=== PATIENT | female | born 1965 | race Caucasian/White ===

== ENCOUNTER → 2019-03-27 14:44 | Outpatient (CLI) | payer OTHER, SELFPAY ==
--- NOTE | ~2019-03-27 | XR_ITS ---
EXAMINATION: XR knee LT min 4V DATE: 03/27/2019 14:56 INDICATION: Left knee pain. TECHNIQUE: 4 views of left knee were obtained. COMPARISON: None. FINDINGS: Bone alignment is normal. No fracture. There is mild tricompartmental osteoarthritis. No kn ee joint effusion. IMPRESSION: 1. Mild left knee osteoarthritis. Reviewed, dictated and finalized at location A. NE REPAIRER
== END ==
PROVIDERS: PCP Family Medicine; Visit Provider Physician Assistant
DX: M17.12 Unilateral primary osteoarthritis, left knee (principal)
CPT/HCPCS: 73564

== ENCOUNTER 2019-11-15 14:15 | Outpatient (RCR) | payer OTHER, SELFPAY ==
--- NOTE | 2019-09-29 15:55 | PTOPEVAL ---
Thank you for referring Kassi Munoz to [facility].? The patient is scheduled to be seen for therapy? 2 x/week for 3 weeks. Please review, sign, date and return this plan of care ERIKA. I agree with and certify that the following plan of care is medically necessary. Referring Physician Date Admitting Provider: Attending Provider: Louis Mayen MD Referring Provider: *PT Outpatient Evaluation Start: 09/29/19 14:36 Freq: Status: Active Protocol: Document 09/29/19 14:36 TLM (Rec: 09/29/19 15:21 [facility] [id number]) Therapy Assessment Status Assessment Status Assessment Status Evaluation Outpatient Past Medical History Past Medical History No Past Medical/Surgical History Patient/Family Denies Significant Past Medical/ Surgical History Evaluation Information Problem Diagnosis R ACL sprain Onset June 2019 Subjective Information In May, pt was doing Query Text:As Reported By 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 Got cortisone shot end of May which made it feel a little better however still cautious with movement. 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 Had initial pain, however, was able to cut all her grass. Noticed swelling and decreased range that night. Went to MD later that week where he told her to ice and continue taking her naproxen. 2 weeks ago (~ 09/16/2019) pt had an appointment at her primary who sent her to Dr. Mayen. Dr. Mayen drained fluid from lateral R knee and gave a second cortisone shot. States her knee is feeling better, however, still karel randomly. Is currently wearing R knee brace when walking increased distances or having increased activity. Diagnostic Tests X-Rays For This Problem Yes: Past R knee injury Pain Assessment Timing of Pain Assessment Timing of Pain Assessment
--- NOTE | 2019-10-18 15:42 | PTOPEVAL ---
Thank you for referring Kassi Munoz to [facility] [place][Note 2[place]? The patient is scheduled to be seen for therapy? 2 x/week for 4 weeks. Please review, sign, date and return this plan of care EIRKA. I agree with and certify that the following plan of care is medically necessary. Referring Physician Date Admitting Provider: Attending Provider: Louis Mayen MD Referring Provider: *PT Outpatient Evaluation Start: 09/29/19 14:36 Freq: Status: Active Protocol: Document 10/18/19 14:04 [facility] (Rec: 10/18/19 14:47 [facility] [id number]) Therapy Assessment Status Assessment Status Assessment Status Progress Outpatient Past Medical History Past Medical History No Past Medical/Surgical History Patient/Family Denies Significant Past Medical/ Surgical History Evaluation Information Problem Diagnosis R ACL sprain Onset June 2019 Subjective Information In May, pt was doing Query Text:As Reported By 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 Got cortisone shot end of May which made it feel a little better however still cautious with movement. 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 Had initial pain, however, was able to cut all her grass. Noticed swelling and decreased range that night. Went to MD later that week where he told her to ice and continue taking her naproxen. 2 weeks ago (~ 09/16/2019) pt had an appointment at her primary who sent her to Dr. Mayen. Dr. Mayen drained fluid from lateral R knee and gave a second cortisone shot. States her knee is feeling better, however, still karel randomly. Pt reports getting in and out of the bathtub/car is easier. Reports shes able to kneel down without pain and her R LE feels stronger overall. Has only had once instance of R
--- NOTE | 2019-11-06 11:03 | PCPTNOTE ---
Patient called & cancelled scheduled appointment this date due to having a .
--- NOTE | 2019-11-13 13:48 | PCPTNOTE ---
Patient called & cancelled scheduled appointment this date due to increased pain this date.
--- NOTE | 2019-11-15 15:00 | PTOPEVAL ---
Thank you for referring Kassi Munoz to [facility].? The patient is discharged from physical therapy secondary to meeting all goals and meeting max therapy potential. I agree with and certify that the following plan of care is medically necessary. Referring Physician Date Admitting Provider: Attending Provider: Louis Mayen MD Referring Provider: *PT Outpatient Discharge Start: 09/29/19 14:36 Freq: Status: Active Protocol: Document 11/15/19 14:19 TL (Rec: 11/15/19 14:41 [facility] [id number]) Therapy Assessment Status Assessment Status Assessment Status Discharge Outpatient Past Medical History Past Medical History No Past Medical/Surgical History Patient/Family Denies Significant Past Medical/ Surgical History Evaluation Information Problem Diagnosis R ACL sprain Onset June 2019 Additional Evaluation Detail Re-eval: Pt states that her knee is feeling much better. 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 States occasional snapping feeling at posterior R knee that coinsides with mild swelling. 1/10 pain with movement. States that she is 99% better and is confident in the stability and strength of her knee ans would like for today to be her last day of PT. 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 Got cortisone shot end of May which made it feel a little better however still cautious with movement. 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 Had initial pain, however, was able to cut all her grass. Noticed swelling and decreased range that night. Went to MD later that week where he told her to ice and
== END 2019-11-16 13:17 | disposition home or self-care (01) ==
LOC: ANHPT 14:15
PROVIDERS: PCP Family Medicine; Visit Provider Orthopaedic Surgery
DX: S83.511D Sprain of anterior cruciate ligament of right knee, subsequent encounter (principal)
CPT/HCPCS: 97110; 97140; 97161

== ENCOUNTER 2020-07-31 09:03 | Outpatient (CLI) | payer OTHER, SELFPAY ==
--- NOTE | ~2020-07-31 | MM_ITS ---
EXAMINATION: MM screening [facility] BI [facility] HISTORY: Screening mammogram TECHNIQUE: Craniocaudal and mediolateral oblique 3-D tomosynthesis images were obtained and synthetic 2-D images were generated. CAD analysis was submitted and interpreted. COMPARISON: 12/29/2018, 12/13/2018, 09/16/2017 BREAST PARENCHYMAL COMPOSITION: There are scattered areas of fibroglandular density. FINDINGS: There is no evidence of suspicious mass, calcification, or architectural distortion to sugg est malignancy in either breast. There has been no suspicious interval change. IMPRESSION: 1. No mammographic evidence of malignancy. 2. Recommend routine screening mammography in one year. BI-RADS Category 1: Negative Reviewed, dictated and finalized at location A.
== END 2020-07-31 09:04 | disposition home or self-care (01) ==
LOC: ANHIMG 09:05
PROVIDERS: PCP Family Medicine; Visit Provider Family Medicine
DX: Z12.31 Encounter for screening mammogram for malignant neoplasm of breast (principal)
CPT/HCPCS: 77063; 77067

== ENCOUNTER → 2021-02-25 16:34 | Outpatient (CLI) | payer OTHER, SELFPAY ==
--- NOTE | ~2021-02-25 | XR_ITS ---
EXAMINATION: XR pelvis 1-2V INDICATION: Low back and hip pain TECHNIQUE: AP view of the pelvis is obtained. COMPARISON: None available FINDINGS: Bone alignment is normal. There is no fracture. There is mild osteoarthritis of the hips. T here is severe lower lumbar spondylosis. IMPRESSION: 1. No acute osseous abnormality. Reviewed, dictated and finalized at location F. 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
--- NOTE | ~2021-02-25 | XR_ITS ---
EXAMINATION: XR lumbar spine min 4V DATE: 02/25/2021 16:57 INDICATION: Low back pain TECHNIQUE: Anteroposterior, lateral, and bilateral oblique views of the lumbar spine, and cone-down l ateral view of the lumbosacral junction were obtained. COMPARISON: None. FINDINGS: There is no fracture, dislocation, or subluxation. The vertebral body heights are normal. T here is severe loss of intervertebral disc space height at L4-5 and L5-S1. There is mild loss of inte rvertebral disc space height throughout the remainder of the lumbar spine. Moderate facet osteoarthri tis is noted at L4-5 and L5-S1. Small degenerative osteophytes project from the anterior endplates of multiple vertebral bodies. IMPRESSION: 1. Moderate to severe lumbar spondylosis without acute findings. Reviewed, dictated and finalized at location F. US AIDE
== END ==
PROVIDERS: PCP Chiropractor; Visit Provider Chiropractor
DX: M25.559 Pain in unspecified hip (principal); M47.896 Other spondylosis, lumbar region
CPT/HCPCS: 72110; 72170

== ENCOUNTER 2021-05-21 15:15 | Outpatient (RCR) | payer OTHER, SELFPAY ==
--- NOTE | 2021-04-24 16:08 | PTOPEVAL ---
PHYSICAL THERAPY INITIAL EVALUATION. Thank you for referring Kassi Munoz to [facility].? The patient is scheduled to be seen for therapy? 2x/week for 4 weeks. Please review, sign, date and return this plan of care ERIKA. I agree with and certify that the following plan of care is medically necessary. Referring Physician Date Attending Provider: Jennifer Winter PA-C *PT Outpatient Evaluation Start: 04/24/21 Evaluation Information Diagnosis Strain of lower back Onset 3 months Subjective Information Pt states her back pain Query Text:As Reported By Patient/ started with a sore muscle on Family the R side. She went to a chiropractor and this did not help, the chiropractor gave her some stretches to try and some help for a little bit. Now her entire back hurts, and is occasionally getting some pain into her pelvis. 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 She reports increasing pain momentarily when she lays down flat. Pain Assessment Lower Back Reported Pain Level 2 Pain Description Aching,Sharp,Tightness,With Movement Radicular Pain Location B hips Pain Frequency Acute,Intermittent Lowest Pain Intensity 1 Greatest Pain Intensity 8 Pain Aggravating Factors Bending,Exercise/Activity, Lifting Cervical and Lumbar ROM Lumbar Flexion (0-90) 70 Lumbar Flexion Active Ankle Lumbar Extension (0-40) 10 Lateral Flexion 4in above knee joint line Query Text:Active Hands to: bilaterally Lateral Rotation Right (0-45) 30 Lateral Rotation Left (0-45) 30 Lumbar ROM 75% of Normal Normal Lumbar Segmental Motion Yes Lower Extremity Range of Motion General Lower Extremity Range of Motion WFL/Left,WFL/Right Lower Extremity Muscle Strength Testing General Lower Extremity Strength WFL/Left,WFL/Right Gross Lower Extremity Strength Grossly 4+/5 in B LE Posture Standing Position Head/C-Spine Posture Excess Extension,Forward Head Thoracic Spine Posture Increased Kyphosis Lumbar Spine Posture Increased Lordosis Pelvis Posture Anteriorly Tilted Balance Assessment 5 Time Sit to Stand Time in Seconds 17
--- NOTE | 2021-05-12 12:48 | PCPTNOTE ---
Patient called & cancelled scheduled appointment this date due to being sick.
--- NOTE | 2021-05-14 14:41 | PCPTNOTE ---
Patient called & cancelled scheduled appointment this date due to still not feeling well.
--- NOTE | 2021-05-21 15:41 | PTOPEVAL ---
PHYSICAL THERAPY PROGRESS NOTE AND DISCHARGE REPORT. Thank you for referring Kassi Munoz to [facility].? The patient is to be discharged from skilled physical therapy services at this time. Please review, sign, date and return this plan of care ERIKA. I agree with and certify that the following plan of care is medically necessary. 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 She states she no longer is woken in the night by back pain Pain Assessment Lower Back Reported Pain Level 0 Greatest Pain Intensity 3 Cervical and Lumbar ROM Lumbar ROM Lumbar Flexion (0-90) 70 Lumbar Flexion Active Ankle Lumbar Extension (0-40) 30 Lateral Flexion 2in above knee joint line Query Text:Active Hands to: bilaterally Lateral Rotation Right (0-45) 45 Lateral Rotation Left (0-45) 45 Lumbar ROM 75% of Normal Normal Lumbar Segmental Motion Yes Lower Extremity Range of Motion General Lower Extremity Range of Motion WFL/Left,WFL/Right Gross Lower Extremity Range of Motion B LE grossly 5/5 excluding B Comments glute med 4/5 Balance Assessment 5 Time Sit to Stand Time in Seconds 11 5 Time Sit to Stand Comments INitally 17s: Without the use Query Text:Normative Data: If Greater of UEs Than 15 Seconds, 74% Increase Risk for 4/6/22: 11s without the use of Recurrent Falls UEs PT Clinical Summary Kassi presents to therapy today for her progress report following 6 therapy visits to treat her diagnosis of a lumbar muscle strain. Today she demonstrates improved awareness and body mechanics with functional mobility including squat mechanics and lifting mechanics. She reports improved pain. Kassi will be discharged from skilled physical therapy services at this time with instructions to continue with her home exercise program and to follow up with her referring
== END 2021-05-22 08:11 | disposition home or self-care (01) ==
LOC: ANHPT 15:15
PROVIDERS: PCP Family Medicine; Visit Provider Physician Assistant
DX: S39.012D Strain of muscle, fascia and tendon of lower back, subsequent encounter (principal)
CPT/HCPCS: 97110; 97112; 97140; 97161; 97530

== ENCOUNTER 2021-09-22 08:30 | Outpatient (CLI) | payer OTHER, SELFPAY ==
--- NOTE | ~2021-09-22 | MM_ITS ---
EXAMINATION: MM screening [facility] BI [facility] HISTORY: Screening mammogram TECHNIQUE: Craniocaudal and mediolateral oblique 3-D tomosynthesis images were obtained and synthetic 2-D images were generated. CAD analysis was submitted and interpreted. COMPARISON: 07/31/2020, 12/29/2018, 12/13/2018 BREAST PARENCHYMAL COMPOSITION: There are scattered areas of fibroglandular density. FINDINGS: There is no suspicious mass, calcification, or architectural distortion to suggest malignan cy in either breast. There has been no suspicious interval change. IMPRESSION: 1. No mammographic evidence of malignancy. 2. Recommend routine screening mammography in one year. BI-RADS Category 1: Negative Reviewed, dictated and finalized at location A.
== END 2021-09-22 08:31 | disposition home or self-care (01) ==
LOC: ANHIMG 08:32
PROVIDERS: PCP Family Medicine; Visit Provider Family Medicine
DX: Z12.31 Encounter for screening mammogram for malignant neoplasm of breast (principal)
CPT/HCPCS: 77063; 77067

== ENCOUNTER 2022-11-18 15:45 | Outpatient (RCR) | payer OTHER, SELFPAY ==
--- NOTE | 2022-10-26 16:36 | OPREHPOC ---
Outpatient Therapy Plan of Care This is a Multidisciplinary Plan of Care that may contain components documented by all disciplines (PT, OT, and ST.) PT Problem 1 PT Problem #1 Knowledge Deficit PT Goal 1 Goal Pt to be IND with issued HEP Target Visit 4 PT Problem 2 PT Problem #2 Pain PT Goal 1 Goal Pt to report back pain no greater than 3/10 in the last week Target Visit 4 PT Goal 2 Goal Pt to report 75% improvement in overall symptoms Target Visit 4 PT Problem 3 PT Problem #3 Impaired Range of Motion PT Goal 1 Goal Pt to report no increase in pain with active trunk ROM Target Visit 4 PT Problem 4 PT Problem #4 Impaired Functional Mobil PT Goal 1 Goal Pt to demonstrate a 30lb lift and carry without an increase in pain. Target Visit 4
--- NOTE | 2022-10-26 16:36 | PTOPEVAL1 ---
Assessment and note entered by Analia Wood, PT, DPT Evaluation Information Assessment Status Evaluation Diagnosis back pain Onset 3 months Subjective Information Pt states she had the same back pain 2 years and therapy was able to help, she tried her previous exercises without any relief. She states the pain has gradually increased for the last 3 months. She states the pain is more on the R side from her ribs to her hips, she feels it is a muscular pain. She reports most pain when rolling over in bed, and getting in/out of bed. Pt does a lot of standing and lifting for work. Reported Pain Level Pain Score 2: Self Report Assessment PT Clinical Summary Kassi presents to therapy today for her initial evaluation with a diagnosis of back pain. Today she demonstrates lumbar and hip ROM that is WNL but increases the ache felt in her R lumbar paraspinals. Her paraspinals are not tender to palpation and to not feel more tight on the R. She demonstrates a decreased ability to roll over on the mat d/t pain, her posture is also slightly flexed in sitting. Skilled therapy services are indicated to improve core strength and body mechanics, to manage pain, and to return to PLOF. Plan of Care Interventions Electrical Stimulation,Gait Training,Hot Pack/Cold Pack,Manual Therapy,Neuro Re-education,Patient/ Caregiver Educati,Therapeutic Activities, Therapeutic Exercise PT Services Indicated Yes Treatment Frequency and 1x/wk for 4 visits Duration These treatments will address the objective and functional deficits as defined above. The patient will be advanced safely and appropriately in order for the patient to progress towards his/her prior level of function. Additional exercises will be introduced and as well as a comprehensive home exercise program upon discharge, if needed, ?to ensure carryover of functional gains achieved in the clinic. This treatment plan has been reviewed and agreement upon by the patient.
--- NOTE | 2022-11-11 16:00 | PCPTNOTE ---
Patient no showed to appointment this date. Called and left voicemail.
--- NOTE | 2022-11-18 16:31 | PTOPDC ---
Assessment and note entered by Analia Wood, PT, DPT Evaluation Information Assessment Status Discharge Diagnosis back pain Onset 3 months Subjective Information Pt states overall she is doing great. She states she does get a little soreness if she feels like she overworks herself but the stretches seem to help with this. Pt reports 90% improvement in overall symptoms. She states she has improved her awareness of her body positioning. Reported Pain Level Pain Score 0: Self Report Assessment PT Clinical Summary Kassi presents to therapy today for her progress report following 3 visits of skilled therapy to treat her diagnosis of low back pain. Today she demonstrates improved lumbar and hip ROM this is now pain free. She continues to demonstrates good LE strength. Today she demonstrates a functional lift without compensations. She has met all of her therapy goals and no longer requires skilled services. She will be discharged at this time. Plan of Care PT Services Indicated No
== END 2022-11-19 09:13 | disposition home or self-care (01) ==
LOC: ANHGOSHPT 15:45
PROVIDERS: PCP Family Medicine; Visit Provider Nurse Practitioner
DX: M54.9 Dorsalgia, unspecified (principal)
CPT/HCPCS: 97110; 97112; 97161; 97530; 99199

== ENCOUNTER 2023-03-24 15:28 | Outpatient (CLI) | payer OTHER, SELFPAY ==
--- NOTE | ~2023-03-24 | MM_ITS ---
EXAMINATION: MM screening [facility] BI w [facility] HISTORY: Screening mammogram TECHNIQUE: Craniocaudal and mediolateral oblique 3-D tomosynthesis images were obtained and synthetic 2-D images were generated. CAD analysis was submitted and interpreted. COMPARISON: 09/22/2021, 07/31/2020, 12/29/2018 BREAST PARENCHYMAL COMPOSITION:Not Dense. There are scattered areas of fibroglandular density. FINDINGS: No suspicious mass, calcification, or architectural distortion are identified in either shane ast to suggest malignancy. There has been no suspicious interval change. IMPRESSION: No mammographic evidence of malignancy. Recommend routine screening mammography in one year. BI-RADS Category 1: Negative Reviewed, dictated and finalized at location . Y WORKER
== END 2023-03-24 15:29 | disposition home or self-care (01) ==
PROVIDERS: PCP Family Medicine; Visit Provider Family Medicine
DX: Z12.31 Encounter for screening mammogram for malignant neoplasm of breast (principal)
CPT/HCPCS: 77063; 77067

== ENCOUNTER 2023-06-15 14:56 | Outpatient (CLI) | payer OTHER, SELFPAY ==
--- NOTE | ~2023-06-15 | XR_ITS ---
XR hip LT min 2V DATE: 06/15/2023 15:07 INDICATION: Left hip pain TECHNIQUE: AP and lateral views of the left hip COMPARISON: None FINDINGS: The pubic symphysis and left sacroiliac joint appear normal. Normal left hip joint space. N o fracture, dislocation, avascular necrosis or bone destruction of the left hip is detected. IMPRESSION: Negative Reviewed, dictated and finalized at location A. IMPRESSION: Negative
== END 2023-06-15 14:57 ==
PROVIDERS: PCP Family Medicine; Visit Provider Family Medicine
DX: M25.552 Pain in left hip (principal)
CPT/HCPCS: 73502

== ENCOUNTER 2023-07-02 09:10 | Emergency (ER) | payer OTHER, SELFPAY ==
--- NOTE | ~2023-07-02 | XR_ITS ---
EXAMINATION: XR knee RT min 4V DATE: 07/02/2023 09:46 INDICATION: Fall onto right knee with pain and swelling TECHNIQUE: Anteroposterior, oblique, sunrise and lateral views of the right knee were obtained COMPARISON: None. FINDINGS: Alignment is normal. No fracture. Small marginal osteophytes in all 3 compartments with relatively p reserved joint spaces consistent with mild tricompartmental osteoarthritis. No joint effusion. Soft t issues are unremarkable. IMPRESSION: 1. Mild tricompartmental osteoarthritis at the right knee with no joint effusion or acute osseous abn ormality. Reviewed, dictated and finalized at location A. IMPRESSION: 1. Mild tricompartmental osteoarthritis at the right knee with no joint effusio n or acute osseous abnormality.
[2023-07-02 09:22] VITALS: BP 126/86; PULSE 84; RESP 16; TEMP 37.1; O2SAT 99
--- NOTE | 2023-07-02 09:23 | ED.LOWEXIN ---
HPI - Extremity Injury (Lower) General Chief Complaint: Extremity Injury, Lower Stated Complaint: Injured Right Knee Time Seen by Provider: 07/02/23 09:24 Source: patient, RN notes reviewed and old records reviewed Mode of arrival: ambulatory Limitations: no limitations History of Present Illness HPI Narrative: 57 year old female who presents to express care with complaints of falling off of the curb onto her right knee yesterday. Patient reports that she has taken Ibuprofen but has not used any ice. Patient feels that her knee is swollen and stiff. Patient has been able to bear weight but is limping states that her knee feels tight with generalized discomfort of her anterior knee. Patient is able to bend her knee, negative varus and valgus tests, negative drawer test. MD complaint: knee injury Onset (ago): day(s) (since yesterday) Injury: Right: knee (stepped off of curb fell onto knee) Type of Injury: blunt and other (twisted) Place: street/outdoors Severity scale (1-10): 7 Treatments prior to arrival: NSAIDS Related Data Home Medications Medication Instructions Recorded Confirmed naproxen 500 mg tablet See Rx Instructions .Route 03/09/23 07/02/23 .COMPLEX PRN Pain, Mild valacyclovir 500 mg tablet 500 mg PO DAILY 03/09/23 07/02/23 Allergies Allergy/AdvReac Type Severity Reaction Status Date / Time amoxicillin Allergy Unknown Skin Verified 07/02/23 09:20 Reaction atorvastatin Allergy Unknown muscle Verified 07/02/23 09:20 soreness doxycycline Allergy Unknown Skin Verified 07/02/23 09:20 Reaction erythromycin base Allergy Unknown Nausea Verified 07/02/23 09:20 minocycline Allergy Unknown Skin Verified 07/02/23 09:20 Reaction Sulfa (Sulfonamide Allergy Unknown Nausea Verified 07/02/23 09:20 Antibiotics) Review of Systems Review of Systems: CONSTITUTIONAL: Denies fever, chills, or sweats. EYES: Denies visual changes, redness, or discharge. ENT: Denies rhinorrhea, congestion, sore throat, or otalgia. CARDIOVASCULAR: Denies chest pain, palpitations, or edema. RESPIRATORY: Denies cough or dyspnea. GASTROINTESTINAL: Denies abdominal pain, nausea, vomiting, or diarrhea. GENITOURINARY: Denies dysuria or hematuria. SKIN: Denies rash or itching. MUSCULOSKELETAL: Denies back pain, positive for right knee pain. swelling and stiffness or myalgia. NEUROLOGIC: Denies headache, numbness, or weakness. PSYCHIATRIC: Denies anxiety or depression. 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 Generalized anxiety disorder Laceration without foreign body of left thumb without damage to nail, initial encounter Menopause Prediabetes Family History Family History Mother Family history of thyroid disease, Onset Age: 86 Depression, Onset Age: 86 Family history of cardiovascular disease, Onset Age: 86 Family history of atrial fibrillation, Onset Age: 86 Father Diabetes mellitus Family history of cardiovascular disease Family history of Alzheimer's disease Family history of dementia Grandparent Family history of glaucoma Other No family history of malignant neoplasm Social History Social History Social History: Caffeine-coffee Smoking status: Never smoker Second hand tobacco smoke exposure: No Alcohol intake: current Alcohol use details: Only on occasion Substance use: never Substance use type: does not use Lack of Transportation: No Lack of Food: Never True Current Housing: I Have Housing Concerned About Future Housing: No Diffic
== END 2023-07-02 10:08 | disposition home or self-care (01) ==
PROVIDERS: Emergency Provider Registered Nurse; PCP Family Medicine
DX: M25.561 Pain in right knee (principal); E78.5 Hyperlipidemia, unspecified; R73.03 Prediabetes; F41.1 Generalized anxiety disorder
CPT/HCPCS: 73564; 99213; G0463

== ENCOUNTER 2024-06-30 10:06 | Outpatient (CLI) | payer OTHER, SELFPAY ==
--- NOTE | ~2024-06-30 | US_ITS ---
Pelvic ultrasound. Clinical History: Postmenopausal bleeding Technique: Realtime transabdominal and transvaginal scanning of the pelvis was performed. Color flow Doppler and Doppler spectral analysis were performed. Findings: The uterus is anteverted, and measures 5.6 x 3.0 x 4.1 cm. The endometrial stripe has a th ickness of 3 mm. No focal mass is identified. Neither ovary seen. No adnexal mass seen. There is no evidence of free fluid in the cul de sac. Impression: No significant abnormality seen. Neither ovary visualized. Reviewed, dictated and finalized at location . Impression: No significant abnormality seen. Neither ovary visualized.
== END 2024-06-30 10:07 | disposition home or self-care (01) ==
LOC: MICIMG 10:09
PROVIDERS: PCP Family Medicine; Visit Provider Obstetrics & Gynecology Gynecology
DX: N95.0 Postmenopausal bleeding (principal)
CPT/HCPCS: 76830

== ENCOUNTER 2024-11-24 09:24 | Outpatient (CLI) | payer OTHER, SELFPAY ==
--- NOTE | ~2024-11-24 | MM_ITS ---
EXAMINATION: MM screening nereida BI w smita HISTORY: Screening TECHNIQUE: Craniocaudal and mediolateral oblique 3-D tomosynthesis images were obtained and synthetic 2-D images were generated. CAD analysis was submitted and interpreted. COMPARISON: 03/24/2023 and 09/22/2021 BREAST PARENCHYMAL COMPOSITION: The breasts are heterogeneously dense, which may obscure small masses. FINDINGS: There is no evidence of suspicious mass, calcification, or architectural distortion to suggest malignancy. Focal asymmetry in the left breast at the 12:00 position posterior depth. Asymmetry in the upper left breast, middle depth, seen in the left MLO projection. IMPRESSION: 1. Focal asymmetry in the left breast at the 12:00 position, posterior depth. Asymmetry in the upper left breast, middle depth, seen in the left MLO projection. The study is incomplete. A diagnostic mammogram and a diagnostic ultrasound are recommended. 2. No mammographic evidence for malignancy in the right breast. BI-RADS 0: Incomplete-Need additional imaging evaluation. Reviewed, dictated and finalized at location Q. IMPRESSION: 1. Focal asymmetry in the left breast at the 12:00 position, posterior depth. A symmetry in the upper left breast, middle depth, seen in the left MLO projectio n. The study is incomplete. A diagnostic mammogram and a diagnostic ultrasound are recommended. 2. No mammographic evidence for malignancy in the right breast. BI-RADS 0: Incomplete-Need additional imaging evaluation.
--- OUTSIDE RECORDS SUMMARY | 2024-11-24 09:45 | XMS_ITS | Clinical Summary ---
Author Organization [facility] Address [address] [place] [address] Care Team Providers Care Gas Truck Driver Name Role Phone Inna Das DO Primary Care Provider [phone]- [phone] Allergies Active Allergy Reactions Criticality Noted Date Comments Erythromycin Stomach upset Low 12/12/2021 Penicillins Rash Medium 12/12/2021 Sulfa (Sulfonamide Antibiotics) Rash Medium 11/16 Medications omeprazole-clar ith-amoxicillin 20 mg-500 mg- 500 mg (40) combo pack Take by mouth Active escitalopram (LEXAPRO) 20 mg tablet Take 1 tablet (20 mg total) by mouth daily Active naproxen (NAPROSYN) 500 mg tablet 11/13/2021 Active metFORMIN XR (GLUCOPHAGE XR) 500 mg 24 hr tablet Take 1 tablet (500 mg total) by mouth 2 (two) times a day 02/02/2022 Active pravastatin (PRAVACHOL) 40 mg tablet Take 1 tablet (40 mg total) by mouth nightly at bedtime 12/17/2023 Active valACYclovir (VALTREX) 500 mg tablet Take 1 tablet (500 mg total) by mouth daily 2023 Active Active Problems Problem Noted Date Diagnosed Date Corneal scar, left eye 02/04/2024 Assessment & Plan (05/26/2024 8:20 AM CDT): With irregular astigmatism 2/2 fungal ulcer Today [place] [id number] OD: Right eye (OD): dot at 090, 150um central clearance - thinner sup, adequate mid periphery, adequate haptic 360 BCVA 20/40 w/ SRx over CTLs Great fit, adequate vision with lens. Advised to stop wearing lens and call with any redness, pain or blurred vision. RTC 6 months for CTL check, sooner if problems arise Assessment & Plan (03/24/2024 10:10 AM ASSOCIATE PROFESSOR OF EDUCATION): With irregular astigmatism 2/2 fungal ulcer Today with [place] [id number]: OD: dot at 090, 100um central clearance - thinner inf, thin mid periphery but no touch, adequate haptic Very inconsistent ORx Increase central 50um, increase mid periphery 75. Appears that FSE2 was trialed during fitting with no improvement, will put in next lens to see if any subjective improvement. Very inconsistent ORx noted, will incorporate small amount into Srx to reduce anisometropia. Next lens mailed to patient, will communicate through [employer] at very least will have patient RTC prior to warranty ending. 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 Advised to stop wearing lens and call with any redness, pain or blurred vision. RTC for CTL check in 2-3 weeks Assessment & Plan (02/04/2024 11:26 AM ASSOCIATE PROFESSOR OF EDUCATION): Status post (s/p) Fusarium corneal ulcer Pt notes adequate vision with glasses but excessive shadows left eye (OS) Today w/ [place] [id number] Right eye (OD): dot at 135, 650um central clearance, adequate midperiphery/limbal, adequate haptic, mild blanching quad 2 BCVA 20/40--, patient notes significant improvement with shadows No improvement in BCVA w/ FSE2, notes worsened shadows RTC for disp when CTL arrives Ref #[id number] Assessment & Plan (07/21/2022 8:06 AM CDT): Corneal ulcer, OS -- fusarium and rare proprionbacterium secondary scar - stable VA on topical steroids x 6mos ADLs being met observe PLAN: - Cont Valtrex 1g QD - Cont pf Dex (0.1%) gtts OS T x 2mos, then bid x 2mos, then qdID - Cont CL holiday RTC 6mos w/ Dr. Johnson Assessment & Plan (04/21/2022 4:19 PM ASSOCIATE PROFESSOR OF EDUCATION): Corneal ulcer, OS -- fusarium and rare proprionbacterium PLAN: - Cont Valtrex 1g QD - Cont pf Dex (0.1%) gtts OS QID - Cont CL holiday indefinitely - Okay to return to work without restrictions RTC 6wks Assessment & Plan (03/10/2022 8:08 AM ASSOCIATE PROFESSOR OF EDUCATION): Corneal ulcer, OS -- fusarium and rare proprionbacterium PLAN: - Cont Valtrex 1g QD - Cont pf Dex (0.1%) gtts OS QID - Cont CL holiday indefinitely - Okay to return to work without restrictions RTC 6wks Assessment & Plan (02/24/2022 7:50 AM ASSOCIATE PROFESSOR OF EDUCATION): Corneal ulcer, OS -- fusarium and rare proprionbacterium Today significantly improved conjunctival injection with change to pf Dex, most likely allergic reaction to PF PLAN: - Cont Valtrex 1g QD - Cont pf Dex (0.1%) gtts OS QID - Cont CL holiday indefinitely - Okay to return to work without restrictions RTC 1 week Assessment & Plan (02/19/2022 9:01 AM ASSOCIATE PROFESSOR OF EDUCATION): Corneal ulcer, OS -- fusarium and rare proprionbacterium Today no infiltrate with scarring, KNV superiorly improved to 1.3mm, no epi defect Increased conjunctival injection, most likely developing allergic reaction to drop PLAN: - ContValtrex to 1g QD - D/c PF TID (may be allergic to vehicle or preservative) -start pres free Dex (0.1%)gtts OS QID - Cont CL holiday indefinitely - Okay to return to work without restrictions RTC Assessment & Plan (02/17/2022 8:31 AM ASSOCIATE PROFESSOR OF EDUCATION): Corneal ulcer, OS -- fusarium and rare proprionbacterium Today no infiltrate with scarring, KNV superiorly improved to 1.3mm, no epi defect Increased conjunctival injection, most likely developing allergic reaction to drop PLAN: - Dec Valtrex to 1g QD - Stop Natamycin and voriconazole - Stop ocuflox BID OS - Cont PF TID - Cont CL holiday indefinitely - Okay to return to work without restrictions RTC Wed/Wed Assessment & Plan (02/03/2022 8:43 AM ASSOCIATE PROFESSOR OF EDUCATION): Corneal ulcer, OS -- fusarium and rare proprionbacterium 1 x 1 infiltrate (improved in size), now with central clearing with thinning 30% NST, gutter at 1-6oc with thinning, KNV superotemporally 2mm onto cornea, pinpoint epi defect PLAN: - Cont Valtrex to 1g BID - Cont Natamycin and voriconazole BID WA 1 apart x 1wk, then qd - Cont ocuflox BID OS - Start PF TID 3 days prior to next visit - Perforation precautions emphasized - continue CL holiday indefinitely RTC 2 weeks Assessment & Plan (01/29/2022 3:49 PM ASSOCIATE PROFESSOR OF EDUCATION): Corneal ulcer, OS -- fusarium and rare proprionbacterium 1.3 x 1 infiltrate (improved in size), now with central clearing without thinning, gutter at 1-6oc with thinning, KNV superotemporally 1.1mm onto cornea Improved 0.1mm inferior hypopyon dusting from inflammation PLAN: - decreasee Valtrex to 1g BID - decrease Natamycin and topical voriconazole BID WA 1 apart - decrease ocuflox BID OS - Perforation precautions emphasized - continue CL holiday indefinitely RTC 2 weeks Assessment & Plan (01/22/2022 4:05 PM ASSOCIATE PROFESSOR OF EDUCATION): Corneal ulcer, OS -- fusarium and rare proprionbacterium 2.5x2.5 infiltrate (improved in size), now with central clearing without thinning, gutter at 1-6oc with thinning, KNV superotemporally 1.5mm onto cornea New 1.1mm inferior hypopyon dusting from inflammation PLAN: - Continue valtrex to 1g TID - Decrease Natamycin and topical voriconazole TID WA - Continue ocuflox TID OS - Perforation precautions emphasized - continue CL holiday OD RTC 1 weeks Assessment & Plan (01/06/2022 1:34 PM ASSOCIATE PROFESSOR OF EDUCATION): Corneal ulcer, OS -- fusarium and rare proprionbacterium 4.5x4.5 infiltrate, now with central clearing without thinning, gutter at 1-6oc with thinning, no hypopyon PLAN: - Continue valtrex to 1g TID - Decrease Natamycin and topical voriconazole 5x/day WA - Continue ocuflox TID OS - Perforation precautions emphasized - continue CL holiday OD RTC 2 weeks Assessment & Plan (12/30/2021 8:19 AM ASSOCIATE PROFESSOR OF EDUCATION): Corneal ulcer, OS -- fusarium and rare proprionbacterium 4.5x4.5 infiltrate, now with central clearing without thinning, gutter at 1-6oc with thinning, no hypopyon PLAN: - Continue valtrex to 1g TID - Decrease Natamycin and topical voriconazole Q3hr (6x/day) WA - Continue ocuflox TID OS - Perforation precautions emphasized - continue CL holiday OD RTC 1 week Assessment & Plan (12/23/2021 8:24 AM ASSOCIATE PROFESSOR OF EDUCATION): Corneal ulcer, OS -- fusarium and rare proprionbacterium 5.3Vx5.9H infiltrate without epi defect, now with central clearing without thinning, gutter at 4oc with thinning, resolved hypopyon PLAN: - Continue valtrex to 1g TID - Continue Natamycin and topical voriconazole Q3hr (6x/day) WA - reduce ocuflox TID OS - Perforation precautions emphasized - continue CL holiday OD RTC Wednesday Assessment & Plan (12/18/2021 8:03 AM CDT): Corneal ulcer, OS -- fusarium and rare proprionbacterium Symptoms onset 12/03. Hx CL wear, sleeps in CL almost nightly, showers with CL in. Was being treated as HSV keratitis 5.3Vx5.9H infiltrate without epi defect, now with central clearing without thinning, gutter at 4oc with thinning, resolved hypopyon PLAN: - Continue valtrex to 1g TID - Continue Natamycin and topical voriconazole Q2 hr 1 minute apart WA OS. Decrease to Q3hr on Wednesday - Continue ocuflox QID OS - Perforation precautions emphasized - CL holiday RTC Wednesday Assessment & Plan (12/16/2021 7:48 AM CDT): Corneal ulcer, OS -- growing mold and rare proprionbacterium Symptoms onset 12/03. Hx CL wear, sleeps in CL almost nightly, showers with CL in. Was being treated as HSV keratitis 5.2Vx5.4H infiltrate with trace overlying epi defect, 0.5mm hypopyon PLAN: - Continue valtrex to 1g TID - Natamycin and topical voriconazole Q2 hr 1 minute apart WA OS - Start ocuflox QID OS - CL holiday RTC Assessment & Plan (12/12/2021 3:38 PM CDT): Symptoms onset 12/03. Hx CL wear, sleeps in CL almost nightly, showers with CL in. Was being treated as HSV keratitis 3.5x3.3 ulcer with multiple infiltrates and feathery borders and overlying epi defect PLAN: - Increase valtrex to 1g TID - Start moxi hourly WA OS - Stop tobradex - Stop trifluride - Bacterial, fungal, and viral cultures taken today - CL holiday RTC Wednesday Medical History Medical History Date Comments Corneal ulcer 12/03/2021 OS Herpes 12/03/2021 Social History Tobacco Use Types Packs/Day Years Used Date Smoking Tobacco: Never Tobacco Cessation:Counseling Given: Not Answered Comments No Sex and Gender Information Value Date Recorded Sex Assigned at Not on file Legal Sex Female 2:29 PM ASSOCIATE PROFESSOR OF EDUCATION Gender Identity Not on file Sexual Orientation Not on file Obstetrics History Last Filed Vital Signs Vital Sign Reading Time Taken Comments Blood Pressure 164/98 12/13/2021 11:05 PM CDT Pulse 86 12/13/2021 11:05 PM CDT Temperature 36.5 C (97.7 F) 12/13/2021 11:05 PM CDT Respiratory Rate 16 12/13/2021 11:05 PM CDT Oxygen Saturation 96% 12/13/2021 11:05 PM CDT Inhaled Oxygen Concentration - - Weight 81.6 kg (180 lb) 12/13/2021 11:05 PM CDT Height 167.6 cm (5' 6) 12/13/2021 11:05 PM CDT Body Mass Index 29.05 12/13/2021 11:05 PM CDT Plan of Treatment Health Maintenance Due Date Last Done Comments Breast Cancer Screening-Mammogram 1965 Cervical Cancer Screening 1965 Colon Cancer Screening-Colonoscopy 1965 Depression Screening 1965 Hepatitis C Screening 1965 DTaP/Tdap/Td Vaccine (1 - Tdap) 12/05/1975 Hepatitis B Screening 1982 Regular Well Visit/Exam 18-64 1982 Zoster Vaccine (1 of 2) 2014 Covid-19 Vaccine ( season) 2024 01/14/2021, 04/27/2020, 03/30/2020 Influenza Vaccine (#1) 2024 2, 11/18/2020, 10/22/2019, Additional history exists Pneumococcal vaccine <65 Aged Out No longer eligible based on patient's age to complete this topic Insurance [facility]O Address: [address] [place] [address] [facility] Address: [address] [place] [address] Care Teams Gas Truck Driver Relationship Specialty Start Date End Date Inna Das DO PCP - General Family Medicine 12/12/21
== END 2024-11-24 09:25 | disposition home or self-care (01) ==
LOC: ANHFOHIMG 09:25
PROVIDERS: PCP Family Medicine; Visit Provider Family Medicine
DX: Z12.31 Encounter for screening mammogram for malignant neoplasm of breast (principal); R92.8 Other abnormal and inconclusive findings on diagnostic imaging of breast
CPT/HCPCS: 77063; 77067

== ENCOUNTER 2025-01-05 10:20 | Outpatient (CLI) | payer OTHER, SELFPAY ==
--- NOTE | ~2025-01-05 | MM_ITS ---
EXAMINATION: MM diagnostic nereida LT w smita INDICATION: 59-year old female; BI-RADS 0, callback to evaluate Left breast focal asymmetry COMPARISON: 11/24/2024 TECHNIQUE: Digital breast tomosynthesis True lateral view and spot compression CC and MLO views of Left breast were obtained with computer-aided detection to assist in interpretation of the study. FINDINGS: The breasts are heterogeneously dense, which may obscure small masses. The focal asymmetry seen at 12:00 position and asymmetry in the upper Left breast on the screening mammogram effaces on additional views, compatible with normal overlapping tissue.. IMPRESSION: Left breast finding represents superimposition of fibroglandular tissue. No further investigation necessary. RECOMMENDATION: Annual screening mammography in 12 months BI-RADS 2, BENIGN Reviewed, dictated and finalized at location C. [place] IMPRESSION: Left breast finding represents superimposition of fibroglandular tissue. No fur ther investigation necessary. RECOMMENDATION: Annual screening mammography in 12 months BI-RADS 2, BENIGN
--- OUTSIDE RECORDS SUMMARY | 2025-01-05 10:25 | XMS_ITS | Clinical Summary ---
Author Organization [facility] Address [address] [place] [address] Care Team Providers Care Registry Rn Name Role Phone Inna Das DO Primary Care Provider [phone]- [phone] Allergies Active Allergy Reactions Criticality Noted Date Comments Atorvastatin Muscle pain Medium 07/20/2023 Doxycycline Unknown 07/20/2023 Erythromycin Stomach upset Low 12/12/2021 Penicillins Rash Medium 12/12/2021 Sulfa (Sulfonamide Antibiotics) Rash Medium 11/16 Medications omeprazole-cla rith-amoxicill in 20 mg-500 mg- 500 mg (40) combo pack Take by mouth Active escitalopram (LEXAPRO) 20 mg tablet Take 1 tablet (20 mg total) by mouth daily Active naproxen (NAPROSYN) 500 mg tablet 2 Active metFORMIN XR (GLUCOPHAGE XR) 500 mg 24 hr tablet Take 1 tablet (500 mg total) by mouth 2 (two) times a day 2 Active pravastatin (PRAVACHOL) 40 mg tablet Take 1 tablet (40 mg total) by mouth nightly at bedtime 4 Active valACYclovir (VALTREX) 500 mg tablet Take 1 tablet (500 mg total) by mouth daily 4 Active rosuvastatin (CRESTOR) 40 mg tablet Take 1 tablet (40 mg total) by mouth daily 5 Active Mounjaro 10 mg/0.5 mL pen injector injection INJECT 10 MG (0.5 ML) SUBCUTANEOUSLY WEEKLY. 5 Active Active Problems Problem Noted Date Diagnosed Date Corneal scar, left eye 02/04/2024 Assessment & Plan (05/26/2024 8:20 AM CDT): With irregular astigmatism 2/2 fungal ulcer Today [place] [id number] OD: Right eye (OD): dot at 090, 150um central clearance - thinner sup, adequate mid periphery, adequate haptic 360 BCVA 20/40 w/ SRx over CTLs Great fit, adequate vision with lens. Advised to stop wearing lens and call with any redness, pain or blurred vision. RTC 6 months for CTL check, sooner if problems arise Assessment & Plan (03/24/2024 10:10 AM VENEER TAPER): With irregular astigmatism 2/2 fungal ulcer Today with [place] [id number]: OD: dot at 090, 100um central clearance [...] lens mailed to patient, will communicate through [employer]; at very least will have patient RTC prior to warranty ending. reF# [id number] Combined forms of age-related cataract of both e yes 12/20/2023 Assessment & Plan (03/24/2024 10:11 AM VENEER TAPER): At least mildly visually significant Monitor BCVA with scleral lens 20/40- Resolved Problems Problem Noted Date Diagnosed Date Resolved Date Fungal corneal ulcer, left 12/12/2021 1 02/18/2024 Assessment & Plan (02/25/2024 10:20 AM VENEER TAPER): Status post (s/p) Fusarium corneal ulcer Today w/ [place] [id number] Left eye (OS): dot at 090, 150um [...] weeks Assessment & Plan (02/04/2024 11:26 AM VENEER TAPER): Status post (s/p) Fusarium corneal ulcer Pt notes adequate vision with glasses but excessive shadows left eye (OS) Today w/ [place] [id number] Right eye (OD): dot at 135, 650um central clearance, adequate midperiphery/limbal, adequate haptic, mild blanching quad 2 BCVA 20/40--, patient notes significant improvement with shadows No improvement in BCVA w/ FSE2, notes worsened shadows RTC for disp when CTL arrives Ref #[id number] Assessment & Plan (07/21/2022 8:06 AM CDT): [...] Johnson Assessment & Plan (04/21/2022 4:19 PM VENEER TAPER): Corneal ulcer, OS -- fusarium and rare proprionbacterium PLAN: - Cont Valtrex 1g QD - Cont pf Dex (0.1%) gtts OS QID - Cont CL holiday indefinitely - Okay to return to work without restrictions RTC 6wks Assessment & Plan (03/10/2022 8:08 AM VENEER TAPER): Corneal ulcer, OS -- fusarium and rare proprionbacterium PLAN: - Cont Valtrex 1g QD - Cont pf Dex (0.1%) gtts OS QID - Cont CL holiday indefinitely - Okay to return to work without restrictions RTC 6wks Assessment & Plan (02/24/2022 7:50 AM VENEER TAPER): Corneal ulcer, OS -- fusarium and rare proprionbacterium Today significantly improved conjunctival injection with change to pf Dex, most likely allergic reaction to PF PLAN: - Cont Valtrex 1g QD - Cont pf Dex (0.1%) gtts OS QID - Cont CL holiday indefinitely - Okay to return to work without restrictions RTC 1 week Assessment & Plan (02/19/2022 9:01 AM VENEER TAPER): Corneal ulcer, OS -- fusarium and rare [...] to return to work without restrictions RTC Tu Assessment & Plan (02/17/2022 8:31 AM VENEER TAPER): Corneal ulcer, OS -- fusarium and rare [...] to return to work without restrictions RTC Leanne/Wed Assessment & Plan (02/03/2022 8:43 AM VENEER TAPER): Corneal ulcer, OS -- fusarium and rare [...] weeks Assessment & Plan (01/29/2022 3:49 PM VENEER TAPER): Corneal ulcer, OS -- fusarium and rare [...] weeks Assessment & Plan (01/22/2022 4:05 PM VENEER TAPER): Corneal ulcer, OS -- fusarium and rare [...] weeks Assessment & Plan (01/06/2022 1:34 PM VENEER TAPER): Corneal ulcer, OS -- fusarium and rare proprionbacterium 4.5x4.5 infiltrate, now with central clearing without thinning, gutter at 1-6oc with thinning, no hypopyon PLAN: - Continue valtrex to 1g TID - Decrease Natamycin and topical voriconazole 5x/day WA - Continue ocuflox TID OS - Perforation precautions emphasized - continue CL holiday OD RTC 2 weeks Assessment & Plan (12/30/2021 8:19 AM VENEER TAPER): Corneal ulcer, OS -- fusarium and rare proprionbacterium 4.5x4.5 infiltrate, now with central clearing without thinning, gutter at 1-6oc with thinning, no hypopyon PLAN: - Continue valtrex to 1g TID - Decrease Natamycin and topical voriconazole Q3hr (6x/day) WA - Continue ocuflox TID OS - Perforation precautions emphasized - continue CL holiday OD RTC 1 week Assessment & Plan (12/23/2021 8:24 AM VENEER TAPER): Corneal ulcer, OS -- fusarium and rare [...] and viral cultures taken today - CL RTC Wednesday Encounters Date Type Department Care Team Description 12/18/2024 2:15 PM VENEER TAPER Office Visit [facility] Medicine Ophthalmology [facility] [address] [place] [address] Kerline Johnson MD Combined forms of age-related cataract of both eyes (Primary Dx); Corneal scar, left eye from Last 3 Months Medical History Medical History Date Comments Corneal ulcer 12/03/2021 OS Herpes 12/03/2021 Social History Tobacco Use Types Packs/Day Years Used Date Smoking Tobacco: Never Tobacco Cessation:Counseling Given: Not Answered Comments No Sex and Gender Information Value Date Recorded Sex Assigned at Not on file Legal Sex Female 2:29 PM VENEER TAPER Gender Identity Not on file Sexual Orientation Not on file Last Filed Vital Signs Vital Sign Reading [...] Depression Screening 1964 Hepatitis C Screening 1964 Hepatitis B Screening 1982 Regular Well Visit/Exam 18-64 1982 Zoster Vaccine (1 of 2) 2014 DTaP/Tdap/Td Vaccine (2 - Td or Tdap) 12/18/2017 12/19/2007, 01/03/2003 Covid-19 Vaccine ( season) 2024 01/14/2021, 04/27/2020, 03/30/2020 Influenza Vaccine (#1) 2024 3, 11/05/2021, 11/18/2020, Additional history exists Pneumococcal vaccine <65 Aged Out No longer eligible based on patient's age to complete this topic Insurance [facility] [employer] [facility] Care Teams Registry Rn Relationship Specialty Start Date End Date Inna Das DO PCP - General Family Medicine 12/12/21
== END 2025-01-05 10:21 | disposition home or self-care (01) ==
LOC: ANHFOHIMG 10:21
PROVIDERS: PCP Obstetrics & Gynecology Gynecology; Visit Provider Family Medicine
DX: N63.22 Unspecified lump in the left breast, upper inner quadrant (principal)
CPT/HCPCS: 77061; 77065; G0279